=== PATIENT | female | born 1945 | race Caucasian/White ===

== ENCOUNTER 2017-10-06 10:21 | Day surgery (SDC) | payer OTHER, BC ==
[2017-10-05 12:33] VITALS: BMI 35.2
[2017-10-06] MEDS ORDERED: PROPOFOL 20 ML ONE (12:53)
[2017-10-06] MEDS ORDERED: MIDAZOLAM HCL 2 MG/2 ML SINGLE DOSE VIAL ONE (12:54)
[2017-10-06] MEDS ORDERED: SUCCINYLCHOLINE CHLORIDE 200 MG/10 ML VIAL ONE (12:54)
[2017-10-06] MEDS ORDERED: CEFTRIAXONE 1 GM in DEXTROSE 5%-WATER - 50 ML IVPB ONE (13:00)
[2017-10-06] MEDS ORDERED: CEFTRIAXONE 1 GM/50 ML PREMIX IVPB ONE (13:05)
[2017-10-06] MEDS ORDERED: oxyCODONE HCL 5 MG TABLET PO PRN ×2 (13:47→14:51)
--- NOTE | 2017-10-06 13:47 | OP ---
Operative Note - Note: Operative Date: 10/06/17 Pre-Operative Diagnosis: rt kid stones Operation: cysto/laser litho/stone basket/stent placement Findings: large rt kidney stone Post-Operative Diagnosis: Same as Pre-op Surgeon: Adis Rhodes Anesthesia: General Specimens Removed: stone frags Estimated Blood Loss (mls): 0 Drains & Tubes with Location: 8fr, 24cm stent Operative Report Dictated: Yes
[2017-10-06] MEDS ORDERED: LACTATED RINGERS SOLUTION 1,000 ML IV SCH (14:00)
[2017-10-06] MEDS ORDERED: ELECTROLYTE-148 SOLN 1,000 ML IV SCH (14:00)
[2017-10-06 14:26] VITALS: TEMP 97.8
--- NOTE | 2017-10-06 14:29 | OP ---
DATE OF OPERATION: 10/06/2017 PREOPERATIVE DIAGNOSIS: Right kidney stone. POSTOPERATIVE DIAGNOSIS: Right kidney stone. PROCEDURE: Cystoscopy, ureteroscopy, laser lithotripsy, stone basketing, and stent placement. SURGEON: Aravind Mercer MD INDICATION: Patient is a 72-year-old female with a very large right kidney stone burden, who is status post stage 1 ureteroscopy, laser lithotripsy 2 weeks ago and now taken to the OR for second stage of procedure. DESCRIPTION OF PROCEDURE: Patient taken to the OR, placed supine on the operating table. Cardiac monitoring administered. General anesthesia established. She was prepped and draped in the dorsal lithotomy position. She was given a gram of IV ceftriaxone. The rigid cystoscope was inserted into the urethra without difficulty and into the bladder. The right ureteral stent was seen emanating from the right ureteral orifice. This was grasped with a grasper and brought out to the urethral meatus. At which point, a wire was advanced through the stent into the right renal pelvis. Over the wire, a 12/14-[place] ureteral access sheath was advanced, 36 cm in length, to the level of the proximal ureter. Through this access sheath, flexible ureteroscope was advanced into the kidney. The entire kidney inspected. There were several stones noted from prior fragmentation in the middle pole as well as largest stone in the lower pole. Using the 365-micron laser fiber, the right lower pole stone was pulverized to fine dust and 1- to 2-mm fragments, and then, multiple fragments were removed with the stone basket and sent to Pathology for analysis. Repeat ureteroscopy revealed no evidence of any residual stone burden more than 2-3 mm in size. Ureteroscope was then removed. Guidewires were then replaced, and the ureteral access catheter was removed. Over the remaining guidewire, an 8-[place] 24-cm double-pigtail stent was then advanced in monorail fashion. Fluoroscopy confirmed the stent to be in good position. The patient was awoken from anesthesia and transferred to recovery room in stable condition. There were no complications. Estimated blood loss was minimal. ARAVIND MERCER M.D. [id number]
[2017-10-06] MEDS ORDERED: ACETAMINOPHEN 1000 MG/100 ML VIAL (NON FORMULARY) IVPB ONE (15:00)
[2017-10-06 16:01] VITALS: BP 112/82; PULSE 72
== END 2017-10-06 15:00 | disposition home or self-care (01) ==
LOC: JASU-SURG 10:21
PROVIDERS: ATTEND Urology
PROC: 0TF38ZZ Fragmentation in Right Kidney Pelvis, Via Natural or Artificial Opening Endoscopic (ICD-10-PCS; principal; 2017-10-06 12:00)
PROC: 0T768DZ Dilation of Right Ureter with Intraluminal Device, Via Natural or Artificial Opening Endoscopic (ICD-10-PCS; 2017-10-06 12:00)
DX: N20.0 Calculus of kidney (principal); E11.22 Type 2 diabetes mellitus with diabetic chronic kidney disease; N18.9 Chronic kidney disease, unspecified; E66.9 Obesity, unspecified
CPT/HCPCS: 36415; 76000-TC-FY; 82360; 88300-TC; 94760